=== PATIENT | male | born 1970 | race Caucasian/White ===

== ENCOUNTER 2016-04-28 16:58 | Emergency (ER) | payer SELFPAY ==
[~2016-04-28] VITALS: Ht 167.6 cm; Wt 56.7 kg
[~2016-04-28 16:58] MED LIST: CYCL10TA2 PO; NAPR500T8 PO; PRED20TA PO; TRAM-29 PO
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
[2016-04-28 17:41] VITALS: BP 127/81
[2016-04-28] MEDS ORDERED: TRIA15OI9 TP (17:59)
[2016-04-28] MEDS ORDERED: TRAM1TAB49 PO (17:59)
[2016-04-28] MEDS ORDERED: NAPR500T3 PO (17:59)
--- NOTE | 2016-04-29 08:53 | RAD ---
Indication: Left rib pain with dyspnea, injury yesterday. Technique: Two-view chest radiograph was obtained. No comparison is available. Findings: The lungs are clear. The cardiopulmonary silhouette is within normal limits. There is no pleural effusion. The bony structures are intact. Impression: No acute thoracic findings.
== END 2016-04-28 18:00 | disposition home or self-care (01) ==
LOC: ER 16:58
DX: S20.212A Contusion of left front wall of thorax, initial encounter (principal); L25.9 Unspecified contact dermatitis, unspecified cause; G89.29 Other chronic pain; Z88.5 Allergy status to narcotic agent; Z88.8 Allergy status to other drugs, medicaments and biological substances; Z88.0 Allergy status to penicillin; X58.XXXA Exposure to other specified factors, initial encounter; Y93.89 Activity, other specified; Y92.89 Other specified places as the place of occurrence of the external cause; Y99.8 Other external cause status
CPT/HCPCS: 71020; 99284-25

== ENCOUNTER 2016-07-06 16:59 | Emergency (ER) | payer SELFPAY ==
[~2016-07-06] VITALS: Ht 167.6 cm; Wt 56.7 kg
[~2016-07-06 16:59] MED LIST changes: +NAPR500T3 PO; +TRAM1TAB49 PO; +TRIA15OI9 TP
[2016-07-06 17:18] VITALS: BP 109/60
[2016-07-06] MEDS ORDERED: NAPR500T PO (17:23)
[2016-07-06] MEDS ORDERED: CYCL10TA2 PO (17:23)
--- NOTE | 2016-07-06 17:24 | PHYS DOC ---
Past Medical History Past Medical History: No Pertinent History Additional Past Medical Histor: chronic back pain Past Surgical History: Other Additional Past Surgical Histo: vasectomy Alcohol Use: None Drug Use: None Adult General Chief Complaint Chief Complaint: UPPER EXTREMITY PAIN HPI HPI Patient is a 45 year old presents to the emergency department for one week history of right elbow pain, no trauma. No loss of function. No radiation pain. Review of Systems Review of Systems Constitutional: Denies fever or chills [] Musculoskeletal: Right elbow pain Integument: Denies rash or skin lesions [] Neurologic: Denies headache, focal weakness or sensory changes [] Allergies Allergies Allergies Coded Allergies Type Severity Reaction Last Updated Verified Penicillins Allergy Intermediate 07/04/14 No hydrocodone Allergy Intermediate nausea and vomiting 07/04/14 Yes prednisone Allergy Intermediate 04/28/16 Yes Physical Exam Physical Exam Neck: Normal range of motion, no tenderness, supple, Cardiovascular:Heart rate regular rhythm, no murmur [] Lungs & Thorax: Bilateral breath sounds clear to auscultation [] Skin: Warm, dry, no erythema, no rash. [] Back: No tenderness, no CVA tenderness. [] Extremities: Some of the right elbow, no swelling, no erythema, no ecchymosis, no evidence of trauma. His mild tenderness over the olecranon. He will allow for full range of motion with minimal increase in pain.. Pronation and supination without difficulty. Neurovascular intact distally. His right wrist and right shoulder exam unremarkable. Neurologic: Alert and oriented X 3, normal motor function, normal sensory function, no focal deficits noted. [] EKG EKG [] Radiology/Procedures Radiology/Procedures [] Course & Med Decision Making Course & Med Decision Making Pertinent Labs and Imaging studies reviewed. (See chart for details) [] Dragon Disclaimer Dragon Disclaimer This electronic medical record was generated, in whole or in part, using a voice recognition dictation system. Departure Departure Impression: Primary Impression: Tendinitis Disposition: 01 HOME, SELF-CARE Condition: STABLE Referrals: NO PCP (PCP) Patient Instructions: Biceps Tendon Tendinitis (Distal) with [facility] Scripts Naproxen (NAPROSYN) 500 Mg Tablet 1 TAB PO BID Y for PAIN, #30 TAB 1 Refill Prov: FELISA TURNER APRN 07/06/16 Cyclobenzaprine Hcl (CYCLOBENZAPRINE HCL) 10 Mg Tablet 1 TAB PO TID, #30 TAB Prov: FELISA TURNER APRN 07/06/16 FELISA TURNER APRN July 06, 2016 17:24
[2016-07-06] MEDS ORDERED: KETOROLAC TROMETHAMINE 60 MG/2 ML INJ. IM ONE (17:30)
== END 2016-07-06 17:45 | disposition home or self-care (01) ==
LOC: ER 16:59
DX: M77.8 Other enthesopathies, not elsewhere classified (principal); G89.29 Other chronic pain; Z88.0 Allergy status to penicillin; Z88.6 Allergy status to analgesic agent; Z88.8 Allergy status to other drugs, medicaments and biological substances
CPT/HCPCS: 96372; 99283; J1885

== ENCOUNTER 2018-08-05 10:02 | Emergency (ER) | payer SELFPAY ==
[~2018-08-05] VITALS: Ht 167.6 cm; Wt 56.7 kg
[~2018-08-05 10:02] MED LIST changes: +NAPR-514 PO; +NAPR-683 PO; -NAPR500T3 PO; -TRAM-29 PO; +TRAM-48 PO; -TRAM1TAB49 PO; +TRAM1TAB56 PO
[2018-08-05 10:29] VITALS: BP 143/82
--- NOTE | 2018-08-05 10:42 | PHYS DOC ---
Past Medical History Past Medical History: No Pertinent History Additional Past Medical Histor: chronic back pain Past Surgical History: Other Additional Past Surgical Histo: vasectomy Alcohol Use: None Drug Use: None Adult General Chief Complaint Chief Complaint: LOWER BACK PAIN OR INJURY [facility] HPI Patient is a 47 year old male with a history of chronic back pain presents to ED complaining of back pain times one day ago. Patient states he was carrying a sound board walking backwards and states that he fell onto the rail of a staircase. States he lost his balance. Describes his pain as sharp. Rates his pain as 7 out of 10. States she's taken ibuprofen at home without relief. Patient has pain with movement. Denies bowel/bladder changes, saddle anesthesia, weakness, radiating pain, fever, nausea/vomiting, abdominal pain, chest pain or shortness of breath. Review of Systems Review of Systems Constitutional: Denies fever or chills [] Eyes: Denies change in visual acuity, redness, or eye pain [] HENT: Denies nasal congestion or sore throat [] Respiratory: Denies cough or shortness of breath [] Cardiovascular: No additional information not addressed in HPI [] GI: Denies abdominal pain, nausea, vomiting, bloody stools or diarrhea [] : Denies dysuria or hematuria [] Musculoskeletal: Complains of back pain. Denies joint pain [] Integument: Denies rash or skin lesions [] Neurologic: Denies headache, focal weakness or sensory changes [] All other systems were reviewed and found to be within normal limits, except as documented in this note. Current Medications Current Medications Current Medications Medications (Trade) Dose Ordered Sig/[facility] Start Time Stop Time Status Last Admin Dose Admin Ketorolac Tromethamine (Toradol Im) 60 mg 1X ONCE 08/05/18 10:45 08/05/18 10:46 DC 08/05/18 11:00 60 MG Orphenadrine Citrate (Norflex) 60 mg 1X ONCE 08/05/18 10:45 08/05/18 10:46 DC 08/05/18 11:00 60 MG Allergies Allergies Allergies Coded Allergies Type Severity Reaction Last Updated Verified Penicillins Allergy Intermediate 07/04/14 No hydrocodone Allergy Intermediate nausea and vomiting 07/04/14 Yes prednisone Allergy Intermediate 04/28/16 Yes Physical Exam Physical Exam Constitutional: Well developed, well nourished, no acute distress, non-toxic a ppearance. [] HENT: Normocephalic, atraumatic Eyes: PERRLA, EOMI, conjunctiva normal, no discharge. [] Neck: Normal range of motion, no tenderness, supple, no stridor. [] Cardiovascular:Heart rate regular rhythm, no murmur [] Lungs & Thorax: Bilateral breath sounds clear to auscultation [] Abdomen: Bowel sounds normal, soft, no tenderness, no masses, no pulsatile masses. [] Skin: Warm, dry, no erythema, no rash. [] Back: Mild lumbar paraspinal tenderness, FROM. NV intact No overlying skin changes. no CVA tenderness. [] Extremities: No tenderness, no cyanosis, no clubbing, ROM intact, no edema. [] Neurologic: Alert and oriented X 3, normal motor function, normal sensory f unction, no focal deficits noted. [] Psychologic: Affect normal, judgement normal, mood normal. [] Current Patient Data Vital Signs Vital Signs Date Time Temp Pulse Resp B/P (MAP) Pulse Ox O2 Delivery O2 Flow Rate FiO2 08/05/18 10:29 98.8 89 18 143/82 (102) 99 Room Air 98.8 EKG EKG [] Radiology/Procedures Radiology/Procedures []PROCEDURE: LUMBAR SPINE 2-3V Examination: 2 views of the lumbar spine HISTORY: History of fall, pain COMPARISON: 09/09/2009 FINDINGS: The lumbar vertebral body heights are maintained. No obvious listhesis identified. The facets appear to be well aligned. Mild intervertebral disc height loss identified in the lumbar spine likely degeneration. Question minimal compression change of the T12 vertebral body. IMPRESSION: 1. No acute osseous findings lumbar spine. 2. Question minimal age indeterminate compression change of T12 vertebral body. Course & Med Decision Making Course & Med Decision Making Pertinent Labs and Imaging studies reviewed. (See chart for details) []Discussed imaging findings with patient. No acute injury, old compression fx. no pain to area of compression fracture on exam. Patient's pain improved in the ED. States he is feeling much better. Patient able to ambulate without assistance. No focal neural deficits. Discussed symptomatic treatment, we'll prescribe muscle relaxer outpatient. Discussed follow-up with orthopedics if pain persists. Provided contact information/education. Discussed reasons to return to the ED. Patient understands and agrees with plan. Al Disclaimer Dragon Disclaimer This electronic medical record was generated, in whole or in part, using a voice recognition dictation system. Departure Departure Impression: Primary Impression: Back pain Disposition: 01 HOME, SELF-CARE Condition: IMPROVED Referrals: NO PCP (PCP) HOLLY MENG MD Patient Instructions: Back Pain, Adult Scripts Tramadol Hcl (TRAMADOL HCL) 50 Mg Tablet 50 MG PO Q4HRS PRN for PAIN, #12 TAB Prov: SU WONG 08/05/18 Cyclobenzaprine Hcl (CYCLOBENZAPRINE HCL) 10 Mg Tablet 1 TAB PO TID, #15 TAB Prov: SU WONG 08/05/18 SU WONG Aug 05, 2018 10:42
[2018-08-05] MEDS ORDERED: KETOROLAC 60 MG/2 ML VIAL. IM ONE (10:45)
[2018-08-05] MEDS ORDERED: ORPHENADRINE CITRATE 60 MG/2 ML VIAL. IM ONE (10:45)
--- NOTE | 2018-08-05 11:04 | RAD ---
Examination: 2 views of the lumbar spine HISTORY: History of fall, pain COMPARISON: 09/09/2009 FINDINGS: The lumbar vertebral body heights are maintained. No obvious listhesis identified. The facets appear to be well aligned. Mild intervertebral disc height loss identified in the lumbar spine likely degeneration. Question minimal compression change of the T12 vertebral body. IMPRESSION: 1. No acute osseous findings lumbar spine. 2. Question minimal age indeterminate compression change of T12 vertebral body. Electronically signed by: Gerry Donahue MD (08/05/2018 11:01 AM) [id number]
[2018-08-05] MEDS ORDERED: CYCL10TA2 PO (11:14)
[2018-08-05] MEDS ORDERED: TRAM50TA PO (11:19)
== END 2018-08-05 11:19 | disposition home or self-care (01) ==
LOC: ER 10:02
DX: M54.5 Low back pain (principal); G89.29 Other chronic pain; Z98.52 Vasectomy status; Z88.0 Allergy status to penicillin; Z88.5 Allergy status to narcotic agent; Z88.8 Allergy status to other drugs, medicaments and biological substances; W18.39XA Other fall on same level, initial encounter; Y93.01 Activity, walking, marching and hiking; Y92.89 Other specified places as the place of occurrence of the external cause; Y99.8 Other external cause status
CPT/HCPCS: 72100; 96372; 99284; J1885; J2360

== ENCOUNTER 2019-06-18 15:11 | Emergency (ER) | payer SELFPAY ==
[~2019-06-18] VITALS: Ht 167.6 cm; Wt 62.0 kg
[~2019-06-18 15:11] MED LIST changes: +TRAM50TA PO
[2019-06-18 15:20] VITALS: BP 148/77
--- NOTE | 2019-06-18 15:47 | RAD ---
EXAM: Chest, 2 views. HISTORY: Pain. COMPARISON: 04/28/2016 FINDINGS: 2 views of the chest are obtained. There is no infiltrate, pleural effusion or pneumothorax. The heart is normal in size. IMPRESSION: No acute pulmonary finding. Electronically signed by: Roxie Jang MD (06/18/2019 3:44 PM) [id number]
[2019-06-18] MEDS ORDERED: NAPR-682 PO (16:09)
--- NOTE | 2019-06-18 16:09 | PHYS DOC ---
Past Medical History Past Medical History: No Pertinent History Additional Past Medical Histor: dermatitis, back degeration Past Surgical History: Other Additional Past Surgical Histo: vasectomy Smoking Status: Current Every Day Smoker Alcohol Use: Occasionally Drug Use: None General Adult EDM: Chief Complaint: RIB PAIN HPI: HPI: Patient is a 48 year old male who presented to ER today for evaluation of rib cage pain since Sunday. Patient said he was helping his friend moving some furniture, when he was sitting in the back of the pickup truck holding a dresser while the car was moving. Patient woke up on Sunday morning complaint of pain anytime he take a deep breath or remove the chest certain way, the pain became worse. Patient denies any back pain. Patient said the dresser never hit him. Patient denies any cough or fever. Review of Systems: Review of Systems: Constitutional: Denies fever or chills. [] Eyes: Denies change in visual acuity. [] HENT: Denies nasal congestion or sore throat. [] Respiratory: Denies cough or shortness of breath. [] Cardiovascular: Denies chest pain or edema. Positive for ribs pain. GI: Denies abdominal pain, nausea, vomiting, bloody stools or diarrhea. [] : Denies dysuria. [] Musculoskeletal: Denies back pain or joint pain. [] Integument: Denies rash. [] Neurologic: Denies headache, focal weakness or sensory changes. [] Endocrine: Denies polyuria or polydipsia. [] Lymphatic: Denies swollen glands. [] Psychiatric: Denies depression or anxiety. [] Heart Score: Risk Factors: Risk Factors: DM, Current or recent (<one month) smoker, HTN, HLP, family history of CAD, obesity. Risk Scores: Score 0 - 3: 2.5% MACE over next 6 weeks - Discharge Home Score 4 - 6: 20.3% MACE over next 6 weeks - Admit for Clinical Observation Score 7 - 10: 72.7% MACE over next 6 weeks - Early Invasive Strategies Allergies: Allergies: Allergies Coded Allergies Type Severity Reaction Last Updated Verified Penicillins Allergy Intermediate 07/04/14 No hydrocodone Allergy Intermediate nausea and vomiting 07/04/14 Yes prednisone Allergy Intermediate 04/28/16 Yes Physical Exam: PE: Constitutional: Well developed, well nourished, no acute distress, non-toxic appearance. [] HENT: Normocephalic, atraumatic, bilateral external ears normal, oropharynx moist, no oral exudates, nose normal. [] Eyes: PERRLA, EOMI, conjunctiva normal, no discharge. [] Neck: Normal range of motion, no tenderness, supple, no stridor. NO CREPITUS. NO CONTUSION. Cardiovascular:Heart rate regular rhythm, no murmur [] Lungs & Thorax: Bilateral breath sounds clear to auscultation [] Abdomen: Bowel sounds normal, soft, no tenderness, no masses, no pulsatile masses. [] Skin: Warm, dry, no erythema, no rash. [] Back: No tenderness, no CVA tenderness. [] Extremities: No tenderness, no cyanosis, no clubbing, ROM intact, no edema. [] Neurologic: Alert and oriented X 3, normal motor function, normal sensory function, no focal deficits noted. [] Psychologic: Affect normal, judgement normal, mood normal. [] Current Patient Data: Vital Signs: Vital Signs Date Time Temp Pulse Resp B/P (MAP) Pulse Ox O2 Delivery O2 Flow Rate FiO2 06/18/19 15:20 98.8 98 18 148/77 (100) 99 98.8 EKG: EKG: [] Radiology/Procedures: Radiology/Procedures: [][facility] [address] [place] [address] IMAGING REPORT Signed PATIENT: HAYDEE SANCHEZ ACCOUNT: [id number] : 1970 LOCATION: ER AGE: 48 SEX: M EXAM STATUS: REG ER ORD. PHYSICIAN: SAVANNAH COLORADO DO REASON: CHEST PAIN SINCE sunday after lifting a dresser PROCEDURE: CHEST PA & LATERAL EXAM: Chest, 2 views. HISTORY: Pain. COMPARISON: 04/28/2016 FINDINGS: 2 views of the chest are obtained. There is no infiltrate, pleural effusion or pneumothorax. The heart is normal in size. IMPRESSION: No acute pulmonary finding. Electronically signed by: Roxie Jang MD (06/18/2019 3:44 PM) [id number] DICTATED and SIGNED BY: ROXIE JANG MD DATE: 06/18/19 1544 Course & Med Decision Making: Course & Med Decision Making Pertinent Labs and Imaging studies reviewed. (See chart for details) [] Al Disclaimer: Al Disclaimer: This electronic medical record was generated, in whole or in part, using a voice recognition dictation system. Departure Departure Impression: Primary Impression: Musculoskeletal chest pain Disposition: HOME, SELF-CARE Condition: STABLE Referrals: NO PCP (PCP) follow up with your doctor as needed Patient Instructions: Chest Wall Pain Scripts Naproxen Sodium (ANAPROX DS) 550 Mg Tablet 1 TAB PO BID for pain for 15 Days, #30 TAB 0 Refills Prov: SAVANNAH COLORADO DO 06/18/19 SAVANNAH COLORADO DO June 18, 2019 16:09
== END 2019-06-18 16:26 | disposition home or self-care (01) ==
LOC: ER 15:11
DX: R07.89 Other chest pain (principal); F17.200 Nicotine dependence, unspecified, uncomplicated; Z90.89 Acquired absence of other organs; Z98.890 Other specified postprocedural states; Z88.5 Allergy status to narcotic agent; Z88.6 Allergy status to analgesic agent
CPT/HCPCS: 71046; 99283

== ENCOUNTER 2019-08-08 14:53 | Emergency (ER) | payer SELFPAY ==
[~2019-08-08] VITALS: Ht 167.6 cm; Wt 59.1 kg
[~2019-08-08 14:53] MED LIST changes: +NAPR-682 PO
[2019-08-08 15:31] VITALS: BP 161/82
[2019-08-08] MEDS ORDERED: NAPR-514 PO (16:53)
--- NOTE | 2019-08-08 16:53 | PHYS DOC ---
Past Medical History Past Medical History: No Pertinent History Additional Past Medical Histor: dermatitis, back degeration Past Surgical History: Other Additional Past Surgical Histo: vasectomy Smoking Status: Current Every Day Smoker Alcohol Use: Occasionally Drug Use: None General Adult EDM: Chief Complaint: KNEE INJURY HPI: HPI: Patient is a 48 year old male who presents to the emergency department with complaints of right knee pain for the last 3 to 4 weeks. He states he was helping a friend move some furniture and he slipped on a pile of clothes. He denies a fall but he states that he twisted his knee at that time. Patient reports that there is swelling to his anterior knee. He denies any decreased range of motion, numbness, or tingling of the affected area. Currently rates the pain a 7 out of 10 on the pain scale he denies the pain is aching and stabbing. Patient states he has tried taking 400 mg of ibuprofen and 1 [id number] Aleve on different occasions with little relief of his pain. He denies any radiation of the pain. Review of Systems: Review of Systems: Complete review of systems is negative unless otherwise documented in the HPI Heart Score: Risk Factors: Risk Factors: DM, Current or recent (<one month) smoker, HTN, HLP, family history of CAD, obesity. Risk Scores: Score 0 - 3: 2.5% MACE over next 6 weeks - Discharge Home Score 4 - 6: 20.3% MACE over next 6 weeks - Admit for Clinical Observation Score 7 - 10: 72.7% MACE over next 6 weeks - Early Invasive Strategies Allergies: Allergies: Allergies Coded Allergies Type Severity Reaction Last Updated Verified Penicillins Allergy Intermediate 07/04/14 No hydrocodone Allergy Intermediate nausea and vomiting 07/04/14 Yes prednisone Allergy Intermediate 04/28/16 Yes Physical Exam: PE: Constitutional: Well developed, well nourished, no acute distress, non-toxic appearance. [] HENT: Normocephalic, atraumatic, bilateral external ears normal, nose normal. [] Eyes: PERRLA, EOMI, conjunctiva normal, no discharge. [] Neck: Normal range of motion, no stridor. [] Cardiovascular:Heart rate regular rhythm Lungs & Thorax: Respirations even and unlabored, no retractions, no respiratory distress Skin: Warm, dry, no erythema, no rash. [] Extremities: Right knee: No obvious deformity, no crepitus, negative anterior/posterior drawer testing, 1+ edema to the anterior knee, no erythema, no warmth, no cyanosis, ROM intact Neurologic: Alert and oriented X 3, no focal deficits noted. [] Psychologic: Affect normal, judgement normal, mood normal. [] Current Patient Data: Vital Signs: Vital Signs Date Time Temp Pulse Resp B/P (MAP) Pulse Ox O2 Delivery O2 Flow Rate FiO2 08/08/19 15:31 98.9 83 14 161/82 (108) 99 Room Air 98.9 EKG: EKG: [] Radiology/Procedures: Radiology/Procedures: [] Course & Med Decision Making: Course & Med Decision Making Pertinent Labs and Imaging studies reviewed. (See chart for details) I offered this patient an x-ray of his knee he declined stating he does not have insurance. I have a low suspicion for bony abnormality. Will prescribe the patient naproxen 500 mg p.o. twice daily advised the patient to stop taking ibuprofen and ltuk-pef-[id number] Aleve while taking this medication. Recommend that the patient purchases a knee compression sleeve at a local pharmacy. Will provide patient with 's information for further evaluation and treatment if pain persists. [] Dragon Disclaimer: Dragon Disclaimer: This electronic medical record was generated, in whole or in part, using a voice recognition dictation system. Departure Departure Impression: Primary Impression: Right anterior knee pain Disposition: HOME, SELF-CARE Condition: STABLE Referrals: NO PCP (PCP) VANNESSA SOTO II, MD Patient Instructions: Knee Pain, [id number] Additional Instructions: Fill the prescription and take it as directed, stop taking ibuprofen and Aleve [id number] while taking this medication. Recommend that you purchase a compression knee sleeve at a local pharmacy. Ice and elevate it the affected extremity as needed for comfort. Follow-up with Dr. Soto if symptoms persist, return to the ER symptoms worsen. Scripts Naproxen (NAPROXEN) 500 Mg Tablet 1 TAB PO BID PRN for PAIN for 10 Days, #20 TAB 0 Refills Prov: EDWARDO GUZMAN [employer] 08/08/19 Justicifation of Admission Dx: Justifications for Admission: Justification of Admission Dx: N/A EDWARDO GUZMAN [employer] Aug 08, 2019 16:53
== END 2019-08-08 17:00 | disposition home or self-care (01) ==
LOC: ER 14:53
DX: M25.561 Pain in right knee (principal); R60.0 Localized edema; F17.200 Nicotine dependence, unspecified, uncomplicated; Z90.89 Acquired absence of other organs; Z98.890 Other specified postprocedural states; Z88.5 Allergy status to narcotic agent; Z88.8 Allergy status to other drugs, medicaments and biological substances
CPT/HCPCS: 99282